=== PATIENT | male | born 1990 | race Hispanic/Latino ===

== ENCOUNTER 2018-06-05 17:58 | Emergency (ER) | payer OTHER ==
[2018-06-05 18:31] LABS: APPEARANCE,URINE Clear (CLEAR); BILIRUBIN,URINE Negative (NEGATIVE); COLOR,URINE Yellow (YELLOW); GLUCOSE, URINE (UA) Negative (NEGATIVE); KETONES,URINE Negative (NEGATIVE); LEUKOCYTE ESTERASE ,URINE Negative (NEGATIVE); NITRATE,URINE Negative (NEGATIVE); OCCULT BLOOD,URINE Negative (NEGATIVE); PH,URINE 6.5 (5.0-8.0); PROTEIN,URINE Negative (NEGATIVE)
[2018-06-05 18:38] LABS: AMPHET/METH SCREEN,URINE NEGATIVE (NEGATIVE); BARBITURATE SCREEN, URINE NEGATIVE (NEGATIVE); BENZODIAZEPINES SCREEN,URINE NEGATIVE (NEGATIVE); CANNABINOID SCREEN,URINE NEGATIVE (NEGATIVE); COCAINE SCREEN,URINE NEGATIVE (NEGATIVE); OPIATE SCREEN,URINE NEGATIVE (NEGATIVE); PHENCYCLIDINE SCREEN,URINE NEGATIVE (NEGATIVE)
== END 2018-06-05 20:14 | disposition home or self-care (01) ==
LOC: EDH 17:58
DX: R33.9 Retention of urine, unspecified (principal); R30.0 Dysuria; Z72.0 Tobacco use
CPT/HCPCS: 76770; 80305; 81003; 87486; 87797

== ENCOUNTER 2025-05-10 21:29 | Emergency (ER) | payer SELFPAY ==
[~2025-05-10] VITALS: Ht 160 cm; Wt 138.3 kg
--- NOTE | 2025-05-10 21:42 | NUR ---
UA CUP PROVIDED
--- NOTE | 2025-05-10 22:11 | NUR ---
PT ON PHONE IN [facility], ASKED PT IF HE WAS ABLE TO COLLECT A URINE SAMPLE , PT STATES " NOT YET".
--- NOTE | 2025-05-10 22:59 | NUR ---
PT UNABLE TO URINATE AT THIS TIME
--- NOTE | 2025-05-10 23:11 | HMCIMG ---
EXAMINATION: ULTRASOUND OF THE SCROTUM WITH COLOR DOPPLER. CLINICAL HISTORY: Pain in the bilateral testicles, more on the left, radiating to the groin. COMPARISON: None. TECHNIQUE: Grayscale and color Doppler images were submitted. In addition, color Doppler is medically necessary to perform in order to evaluate vascularity and blood flow. FINDINGS: The testicles are normal in size, contour, and echotexture. The right testicle measures 3.6 x 2.4 x 2.7 cm. The left testicle measures 3.8 x 2.2 x 2.6 cm. There is patent blood flow within the testicles bilaterally. No intra-testicular mass or abnormal echotexture. 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 Bilateral epididymides are normal in appearance. The right epididymis: head, 0.3 cm; body, 0.3 cm; and tail, 0.2 cm. There is a simple cyst that measures 0.3 x 0.2 cm in the head. The left epididymis: head, 0.4 cm; body, 0.2 cm; and tail, 0.3 cm. Prominent vein up to 0.2 cm in the left epididymis. There is no varicocele and shows no significant reflux on Valsalva. There are small bilateral hydroceles. Scrotal hannon appear normal. No significant abnormality in the left inguinal region area of pain. IMPRESSION: Simple cyst in the head of the right epididymis. 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 Small bilateral hydroceles. Mild prominence of the left epididymis in the head and tail region with underlying prominent venous channels. Mild left epididymitis cannot be entirely ruled out. /Monica
--- NOTE | 2025-05-10 23:26 | NUR ---
UA COLLECTED AND SENT
[2025-05-10 23:38] LABS: APPEARANCE,URINE CLEAR (CLEAR); GLUCOSE, URINE (UA) NEGATIVE (NEGATIVE); LEUKOCYTE ESTERASE ,URINE NEGATIVE Leu/uL (NEGATIVE); NITRATE,URINE NEGATIVE (NEGATIVE); OCCULT BLOOD,URINE NEGATIVE (NEGATIVE)
[2025-05-10 23:42] LABS: ADD UA MICROSCOPIC NO
--- NOTE | 2025-05-11 00:09 | NUR ---
PT SITTING IN LOBBY BY VENDING MACHINES. GOOD EVEN CHEST RISE AND FALL OBSERVED
--- NOTE | 2025-05-11 00:34 | NUR ---
PT CARE ASSUMED AT THIS TIME
--- NOTE | 2025-05-11 00:51 | ERN ---
General Chief Complaint: Testicular Injury/Pain Stated Complaint: TESTICLE PAIN Time Seen by MD: 21:41 Time Seen by Midlevel: 21:41 Source: patient History of Present Illness Initial Comments Patient is a 35-year-old male presenting to the emergency department with left- sided testicular pain that started one week ago. He denies any trauma, dysuria, hematuria, or any other symptoms at this time. Allergies: Coded Allergies: No Known Allergies (Unverified Allergy, Unknown, 05/10/25) Past Medical History Past Medical History: No Pertinent History Past Surgical History: Other Surgical History Other: PENIS ROS Dictation CONSTITUTIONAL: Negative except for HPI HEAD/FACE: Negative except for HPI EENT: Negative except for HPI RESPIRATORY: Negative except for HPI GASTROINTESTINAL/ABDOMINAL: Negative except for HPI GENITOURINARY: Negative except for HPI MUSCULOSKELETAL: Negative except for HPI INTEGUMENTARY: Negative except for HPI NEUROLOGICAL/PSYCH: Negative except for HPI HEMATOLOGIC/LYMPHATIC: Negative except for HPI All Systems Negative, Except as noted above. 13 point review of systems assessed and all negative except for above. Physical Exam Physical Exam Dictation Vital Signs reviewed General Appearance: Alert, oriented x 3, no acute distress, well developed, nourished. Head and Face: non-traumatic. Eyes: PERRL, pink conjunctivas, eyelid no trauma, anterior chamber with arcus senilis. Ears: Pinnas intact and no signs of trauma or erythema ear canals clear and no discharge TM no erythema Nose: No discharge, no bleeding. Oropharynx: Mouth normal, tongue pink, pharynx clear,no erythema, tonsils no exudates, no abscesses noted, mucous membrane moist Neck: Supple, non-tender, no thyromegaly, no masses, no JVD, no bruits Breast:Deferred Chest:No tenderness, no crepitus, no paradoxical movement, no retractions Lungs:Clear, well-ventilated, symmetric, no rales, no wheezing, no rhonchi, no stridor, good breath sounds bilaterally Heart: Regular rate, regular rhythm, no murmur, no gallops Vascular: no peripheral edema, Abdomen: Soft, positive bowel sounds, nondistended, no guarding, nontender, no rebound, no masses no hepatomegaly, no splenomegaly, no Hopson's sign, no hernias. Rectal: Deferred Genital: Deferred Neurological: Normal speech, motor function intact, sensory function intact Musculoskeletal: Neck nontender, full range of motion, back nontender, full range of motion, Extremities: nontender, full range of motion Skin: Color pink, dry, no turgor, no rash, no lacerations, no abrasions, no contusions. Lymphatic: Deferred Results Laboratory and Microbiology Lab and Micro Result Laboratory Tests Test 05/10/25 22:47 Urine Color LIGHT-YELLOW (YELLOW) Urine Appearance CLEAR (CLEAR) Urine pH 5.5 (5.0-8.0) Urine Specific [place] 1.029 (1.001-1.031) Urine Protein NEGATIVE mg/dL (NEGATIVE) Urine Glucose (UA) NEGATIVE mg/dL (NEGATIVE) Urine Ketones NEGATIVE mg/dL (NEGATIVE) Urine Occult Blood NEGATIVE (NEGATIVE) Urine Nitrate NEGATIVE (NEGATIVE) Urine Bilirubin NEGATIVE mg/dL (NEGATIVE) Urine Urobilinogen 0.2 mg/dL (0.2-1.0) Urine Leukocyte Esterase NEGATIVE Karie/uL Labs Reviewed?: Yes MDM MDM: Differential diagnosis: Urinary tract infection, hydrocele, testicular torsion There are no social concerns with this patient. Prescription drug management Prescriptions will include: None Medical management and examination interpretation discussions were had by me with other qualified healthcare professionals as indicated for the patient's care. ED Course Orders Procedure Category Date Status Time Us Scrotum & Contents US 05/10/25 Resulted 21:40 Urinalysis Profile LAB 05/10/25 Complete 21:42 Vital Signs Date Time Temp Pulse Resp B/P (MAP) Pulse Ox O2 Delivery O2 Flow Rate FiO2 05/11/25 00:35 98.8 70 16 78/ 100 Room Air* 0 21 05/10/25 21:40 98.8 96 20 132/79 98 Room Air DX & DISP Disposition: Discharge Departure Impression: Primary Impression: Bilateral hydrocele Condition: Stable Referrals: SELF,REFERRAL (PCP) Time of Disposition: 00:51 I have reviewed the case, and I agree with, Diagnosis and Plan I performed the substantive portion of the visit. I have reviewed and personally made and approve the management plan that is documented in the note by myself or the [facility]. I acknowledge for responsibility for the patient's management plan. DARIEL CHAMBERS PAC May 11, 2025 00:51
[2025-05-11 01:07] VITALS: BP 123/70; PULSE 75; RESP 15; TEMP 98.8; O2SAT 100
== END 2025-05-11 01:13 | disposition home or self-care (01) ==
LOC: EDH 21:29
DX: N43.3 Hydrocele, unspecified (principal); Z98.890 Other specified postprocedural states
CPT/HCPCS: 76870; 81003; 99284